=== PATIENT | female | born 1980 | race Caucasian/White ===

== ENCOUNTER 2018-03-11 12:00 | Emergency (ER) | payer BC ==
--- NOTE | 2018-03-11 12:26 | EDM.PDOC ---
ED HPI GENERAL MEDICAL PROBLEM - General Chief Complaint: Headache Stated Complaint: HEADACHE Time Seen by Provider: 03/11/18 12:25 Source of Information: Reports: Patient History Limitations: Reports: No Limitations - History of Present Illness INITIAL COMMENTS - FREE TEXT/NARRATIVE: 37-year-old female presents for evaluation and treatment of a migraine headache. Patient reports that the migraine started about 2 and a half days ago. States she just moved here from [place]. She was unpacking boxes at the time the migraine started; started suddenly. Is primarily located behind the right side of her head. She states that this feels like a migraine she's had the past but is more severe. She reports that she used to get frequent migraines this severe in her 20s but she has not had any this severe in some time. She reports associated symptoms of auras and states that she was seeing spots prior to the migraine starting. She reports nausea but no vomiting. She did try aleve with no relief. She denies any fevers, chills, cough, ear pain or throat pain. Reports associated photophobia and phonophobia as well as some neck pain. Patient is not on any migraine medications at this time. She states that she is to be on Imitrex, Fioricet and Maxalt but has since stopped these. She states that the Imitrex worked the best for her migraines. She has previously seen a neurologist for migraines. Reports that she's had multiple imaging studies done but no etiology for her migraines have been found. She did a migraine diary at one point has not identified any triggers such as foods. Feels that possibly stress triggered her migraine this time. Since she moved has not yet established with a primary care provider. Upon my inspection the patient's blood pressure has come down, 160/111 currently. She states that she is not taking anything for blood pressure but has been told she has high blood pressure in the past and was previously on which she feels is likely diuretic and lisinopril. Headache Pain Score (Numeric/FACES): 9 - Related Data Allergies Allergy/AdvReac Type Severity Reaction Status Date / Time No Known Allergies Allergy Verified 03/11/18 12:10 Home Meds: Home Meds Lisinopril 10 mg PO DAILY #30 tablet 03/11/18 [Rx] ED ROS GENERAL - Review of Systems Review Of Systems: See Below Constitutional: Denies: Fever, Chills HEENT: Reports: Other (reports photophobia, phonophobia and auras in the form of seeing spots). Denies: Ear Pain, Throat Pain Respiratory: Denies: Cough GI/Abdominal: Reports: Nausea. Denies: Vomiting Musculoskeletal: Reports: Neck Pain Neurological: Reports: Headache. Denies: Numbness, Tingling - Physical Exam Exam: See Below Exam Limited By: No Limitations General Appearance: Alert, WD/WN, No Apparent Distress Eye Exam: Bilateral Eye: Normal Inspection, PERRL Ears: Normal External Exam, Normal Canal, Hearing Grossly Normal, Normal TMs Nose: Normal Inspection Throat/Mouth: Normal Inspection, Normal Lips, Normal Oropharynx, Normal Voice, No Airway Compromise Head Exam: Atraumatic, Normocephalic Neck: Normal Inspection, Non-Tender Respiratory/Chest: No Respiratory Distress, Lungs Clear, Normal Breath Sounds Cardiovascular: Normal Peripheral Pulses, Regular Rate, Rhythm, No Murmur Neuro Exam (Abbreviated): Alert, Oriented, Normal Cognition, Other (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, dorsiflexion and plantarflexion 5/5 bilaterally) Psychiatric: Normal Affect, Normal Mood Skin Exam: Warm, Dry, Normal Color Course - Vital Signs Last Recorded V/S: Last Vital Signs Temp 98.0 F 03/11/18 12:10 Pulse 103 H 03/11/18 12:10 Resp BP 181/131 H 03/11/18 12:10 Pulse Ox 98 03/11/18 12:10 - Orders/Labs/Meds Meds: Medications Discontinued Medications Generic Name Dose Route Start Last Admin Trade Name Panchitoq PRN Reason Stop Dose Admin Diphenhydramine HCl 50 mg 03/11/18 12:34 03/11/18 13:06 Benadryl IM 03/11/18 12:35 50 mg ONETIME ONE Administration Haloperidol Lactate 5 mg 03/11/18 14:42 03/11/18 14:49 Haldol IM 03/11/18 14:43 5 mg ONETIME ONE Administration Ketorolac Tromethamine 60 mg 03/11/18 12:34 03/11/18 13:03 Toradol IM 03/11/18 12:35 60 mg ONETIME ONE Administration Promethazine HCl 25 mg 03/11/18 12:34 03/11/18 13:04 Phenergan IM 03/11/18 12:35 25 mg ONETIME ONE Administration Sumatriptan Succinate 50 mg 03/11/18 13:47 03/11/18 13:56 Imitrex PO 03/11/18 13:48 50 mg ONETIME ONE Administration - Re-Assessments/Exams Free Text/Narrative Re-Assessment/Exam: 03/11/18 14:43 Patient reports no relief with the Toradol, phenergran or benadryl. No relief with the PO imitrex. She is reporting no relief with these. 5 IM Haldol ordered. She was searched on the [place] prescription drug registry to include [place]. She is a prescription for controlled substances but this is mostly Fioricet and 1 prescription for Xanax. She's not had a controlled substances since August 2017. 03/11/18 15:17 Checked the patient here she reports No Relief with the Medications Given. I Did Offer to Scan Her Head to Make Sure We Are Not Missing Something; She Does Not Want This. She Is Not Wanting More Medication Medications and would like to Go Home at This Time. She Was Offered Additional Medications We'll Continue Follow Migraine Protocol but She Declined This. I Will Restart Her on Some Blood Pressure Medications, She Is Agreeable This. Will Discharge Her home at this time. Discharge Instructions as Documented. Departure - Departure Time of Disposition: 15:17 Disposition: Home, Self-Care 01 Condition: Fair Clinical Impression: Migraine, Hypertension - Discharge Information *COPY OF PRESCRIPTION DRUG MONITORING REPORT IN PATIENT MARSHALL: No Prescriptions: Lisinopril 10 mg PO DAILY #30 tablet Instructions: Migraine Headache, [id number], Hypertension Referrals: PCP,None [Primary Care Provider] - Keren Parks PA-C [Physician Conference Director] - Forms: ED Department Discharge Additional Instructions: Take the lisinopril as prescribed. 1 tab daily. Follow-up in the clinic to establish care and for recheck of your blood pressure. Recommend Solange Novak or Clare Contreras at the [facility]. Call [phone] schedule with one of these providers. go home and rest today. Make sure you are drinking plenty of fluids. May take [id number] Tylenol or Motrin as needed for additional pain relief. Please return to the ER if your symptoms change or worsen.
[2018-03-11] MEDS ORDERED: Ketorolac 60 MG/2 ML SDV IM ONE (12:34)
[2018-03-11] MEDS ORDERED: diphenhydrAMINE 50 MG/ML SDV IM ONE (12:34)
[2018-03-11] MEDS ORDERED: Promethazine 25 MG/ML SDV IM ONE (12:34)
[2018-03-11] MEDS ORDERED: SUMAtriptan 50 MG Tab PO ONE (13:47)
[2018-03-11] MEDS ORDERED: Haloperidol Lactate 5 MG/ML SDV IM ONE (14:42)
== END 2018-03-11 15:30 | disposition home or self-care (01) ==
LOC: JD.ED 12:00
DX: G43.909 Migraine, unspecified, not intractable, without status migrainosus (principal); I10 Essential (primary) hypertension; Z79.899 Other long term (current) drug therapy
CPT/HCPCS: 96372; 99284; A9270; J1200; J1630; J1885; J2550